=== PATIENT | female | born 1975 | race African-American/Black ===

== ENCOUNTER 2023-03-31 16:11 | Inpatient (IN) | payer OTHER ==
[2023-03-31 16:21] VITALS: BMI 40.1
[2023-03-31] MEDS ORDERED: LACTATED RINGERS SOLUTION 1000 ML INFUS.BAG IV ONE ×4 (16:36→21:54)
[2023-03-31 17:14] LABS: VENOUS BASE EXCESS -0.6 mmol/L (-2-2); VENOUS O2 SATURATION 79.9 % (70-80); VENOUS PCO2 41.4 mmHg (38-52); VENOUS PH 7.388 (7.310-7.410)
[2023-03-31 17:18] LABS: BASO % 0.9 % (0-2.0); EOS % 0.6 % (0-4.5); HEMATOCRIT 36.7 % (32.4-45.2); HEMOGLOBIN 11.7 GM/dL (10.7-15.3); LYMPH % 23.5 % (8-40); MCHC 31.8 g/dl (32.0-36.0); MEAN CELL VOLUME 69.1 fl (80-96); MEAN PLT VOLUME 10.2 fl (7.5-11.1); MONO % 6.7 % (3.8-10.2); NEUT % 68.3 % (42.8-82.8); PLATELET COUNT 307 10^3/uL (134-434); RDW 16.3 % (11.6-15.6); WHITE BLOOD COUNT 8.5 K/mm3 (4.0-10.0)
[2023-03-31 17:25] LABS: INR 1.21 (0.83-1.09)
[2023-03-31 17:30] LABS: PH,URINE 5.5 (5.0-8.0); URINE APPEARANCE CLEAR; URINE BILIRUBIN NEGATIVE (NEGATIVE); URINE COLOR YELLOW; URINE GLUCOSE (UA) 3+ (NEGATIVE); URINE KETONE TRACE (NEGATIVE); URINE LEUK ESTERASE NEGATIVE (NEGATIVE); URINE NITRITE NEGATIVE (NEGATIVE); URINE PROTEIN NEGATIVE (NEGATIVE); URINE UROBILINOGEN 0.2 mg/dL (0.2-1.0)
[2023-03-31 17:38] LABS: CHLORIDE 85 mmol/L (98-107); POTASSIUM 4.4 mmol/L (3.5-5.1); SODIUM 123 mmol/L (136-145)
[2023-03-31 17:40] LABS: ALBUMIN 3.8 g/dl (3.4-5.0); ANION GAP 15 mmol/L (4-13); BLOOD UREA NITROGEN 11.1 mg/dL (7-18); CO2 24 mmol/L (21-32); LIPASE 329 U/L (73-393); MAGNESIUM 2.4 mg/dL (1.8-2.4)
[2023-03-31 17:43] LABS: CREATININE 1.4 mg/dL (0.55-1.3); SGOT/AST 57 U/L (15-37); SGPT/ALT 63 U/L (13-61)
[2023-03-31 17:45] LABS: BILIRUBIN,TOTAL 0.5 mg/dL (0.2-1); TOT PROT 9.2 g/dl (6.4-8.2)
[2023-03-31 17:46] LABS: ALK PHOS 148 U/L (45-117)
[2023-03-31 17:50] LABS: LACTIC ACID 2.6 mmol/L (0.4-2.0)
[2023-03-31 17:51] LABS: GLUCOSE,RANDOM 931 mg/dL (74-106)
[2023-03-31] MEDS ORDERED: INSULIN REGULAR HUMAN 100 UNITS/ML *VIAL IVPUSH ONE ×3 (18:26→23:53)
[2023-03-31 18:35] LABS: ANISOCYTOSIS 2+; MACROCYTOSIS 0; TEAR DROP CELLS 2+
[2023-03-31] MEDS ORDERED: INSULIN REGULAR HUMAN 100 UNITS/ML *VIAL ONE (19:36)
[2023-03-31 21:28] LABS: CHLORIDE 99 mmol/L (98-107); POTASSIUM 3.6 mmol/L (3.5-5.1); SODIUM 134 mmol/L (136-145)
[2023-03-31 21:29] LABS: CALCIUM 8.5 mg/dL (8.5-10.1)
[2023-03-31 21:30] LABS: ANION GAP 10 mmol/L (4-13); BLOOD UREA NITROGEN 8.3 mg/dL (7-18); CO2 26 mmol/L (21-32)
[2023-03-31 21:44] LABS: GLUCOSE,RANDOM 478 mg/dL (74-106)
[2023-03-31] MEDS ORDERED: POTASSIUM CHLORIDE TABS 20 MEQ TABLET.ER (FP) PO ONE (21:54)
[2023-03-31] MEDS ORDERED: ACETAMINOPHEN 1000 MG/100 ML BAG IVPB ONE (22:10)
[2023-03-31] MEDS ORDERED: POTASSIUM CHLORIDE TABS 10 MEQ TABLET.ER (FP) ONE (22:22)
[2023-03-31] MEDS ORDERED: ACETAMINOPHEN INJECTION 100 ML IVPB ONE (22:22)
[2023-03-31] MEDS ORDERED: SODIUM CHLORIDE 1,000 ML IV SCH (23:45)
[2023-04-01] MEDS ORDERED: DOXEPIN HCL 75 MG PO SCH (00:38)
[2023-04-01] MEDS ORDERED: INSULIN REGULAR HUMAN 100 UNITS/ML *VIAL ONE (01:24)
[2023-04-01] MEDS ORDERED: ONDANSETRON 4 MG/2 ML VIAL IVPUSH PRN (01:38)
[2023-04-01] MEDS ORDERED: INSULIN (LEVEMIR) 100 UNITS/ML UNITS SQ SCH (07:00)
[2023-04-01] MEDS ORDERED: KETOROLAC TROMETHAMINE 15 MG/ML VIAL IVPUSH ONE (07:10)
[2023-04-01] MEDS ORDERED: KETOROLAC TROMETHAMINE 15 MG/ML VIAL ONE (08:16)
[2023-04-01] MEDS ORDERED: INSULIN (NOVOLOG) ASPART 100 UNITS/ML 10ML VIAL ONE ×2 (08:18→13:29)
[2023-04-01 08:32] LABS: HEMATOCRIT 30.8 % (32.4-45.2); HEMOGLOBIN 9.4 GM/dL (10.7-15.3); MCH 21.5 pg (25.7-33.7); MCHC 30.6 g/dl (32.0-36.0); MEAN CELL VOLUME 70.3 fl (80-96); MEAN PLT VOLUME 9.6 fl (7.5-11.1); PLATELET COUNT 214 10^3/uL (134-434); RBC 4.38 M/mm3 (3.60-5.2); RDW 15.8 % (11.6-15.6); WHITE BLOOD COUNT 5.5 K/mm3 (4.0-10.0)
[2023-04-01] MEDS: INSULIN ASPART SLIDING SCALE (NOVOLOG) 1 VIAL SQ SCH ×4 (08:34→22:20)
[2023-04-01 09:04] LABS: POTASSIUM 3.7 mmol/L (3.5-5.1)
[2023-04-01 09:07] LABS: CALCIUM 8.3 mg/dL (8.5-10.1)
[2023-04-01 09:08] LABS: BLOOD UREA NITROGEN 5.2 mg/dL (7-18); MAGNESIUM 1.7 mg/dL (1.8-2.4)
[2023-04-01 09:10] LABS: CREATININE 0.7 mg/dL (0.55-1.3)
[2023-04-01 09:11] LABS: BILIRUBIN,DIRECT 0.2 mg/dL (0.0-0.2); PHOSPHOROUS 2.2 mg/dL (2.5-4.9)
[2023-04-01 09:12] LABS: BILIRUBIN,TOTAL 0.5 mg/dL (0.2-1)
[2023-04-01 09:17] LABS: ALBUMIN 2.9 g/dl (3.4-5.0); TOT PROT 6.9 g/dl (6.4-8.2)
[2023-04-01] MEDS: LISINOPRIL 5 MG TABLET PO SCH (10:00)
[2023-04-01] MEDS: ENOXAPARIN NA (PORCINE) 40 MG/0.4 ML DISP.SYRIN SQ SCH ×2 (10:00→22:20)
[2023-04-01] MEDS ORDERED: HYDROCHLOROTHIAZIDE 25 MG TABLET (FP) PO SCH (10:00)
[2023-04-01 12:36] LABS: CALCIUM 8.2 mg/dL (8.5-10.1); CHLORIDE 100 mmol/L (98-107); POTASSIUM 4.1 mmol/L (3.5-5.1); SODIUM 133 mmol/L (136-145)
[2023-04-01 12:37] LABS: ANION GAP 8 mmol/L (4-13); BLOOD UREA NITROGEN 6.7 mg/dL (7-18); CO2 24 mmol/L (21-32)
[2023-04-01 12:40] LABS: CREATININE 0.9 mg/dL (0.55-1.3)
[2023-04-01 12:44] LABS: GLUCOSE,RANDOM 436 mg/dL (74-106)
[2023-04-01] MEDS: SODIUM CHLORIDE 1,000 ML IV SCH ×2 (15:18→23:15)
[2023-04-01] MEDS ORDERED: DOXEPIN HCL 25 MG CAPSULE PO SCH (22:00)
[2023-04-01] MEDS ORDERED: DOXEPIN HCL 50 MG CAPSULE PO SCH (22:00)
[2023-04-02 06:17] VITALS: TEMP 97.6
[2023-04-02] MEDS: INSULIN (NOVOLOG) ASPART 100 UNITS/ML 10ML VIAL SQ SCH ×2 (06:32→11:19)
[2023-04-02] MEDS: INSULIN ASPART SLIDING SCALE (NOVOLOG) 1 VIAL SQ SCH ×2 (06:32→11:18)
[2023-04-02] MEDS ORDERED: INSULIN (LEVEMIR) 100 UNITS/ML UNITS SQ SCH ×2 (07:00→22:00)
[2023-04-02] MEDS: ENOXAPARIN NA (PORCINE) 40 MG/0.4 ML DISP.SYRIN SQ SCH (09:37)
[2023-04-02] MEDS: LISINOPRIL 5 MG TABLET PO SCH (09:37)
[2023-04-02 13:46] VITALS: BP 132/78; PULSE 92; RESP 16
== END 2023-04-02 13:45 | disposition home or self-care (01) | DRG 639 ==
LOC: JER 16:11 → JERBED 23:11 → OBSVTOIN 23:11 → J5S 04-01 18:23
PROVIDERS: ADMIT Internal Medicine; ATTEND Internal Medicine
DX: E11.10 Type 2 diabetes mellitus with ketoacidosis without coma (principal); J40 Bronchitis, not specified as acute or chronic; M25.529 Pain in unspecified elbow; I10 Essential (primary) hypertension; K76.0 Fatty (change of) liver, not elsewhere classified; E55.9 Vitamin D deficiency, unspecified
CPT/HCPCS: 0241U-QW; 36415; 71045-TC-FY; 80048; 80053; 80076; 81003; 82010; 82803; 82962; 83036; 83605; 83690; 83735; 84100; 84443; 85025; 85027; 85610; 87086; 93005; 93010; 99285-25; G0378